=== PATIENT | female | born 1970 | race Caucasian/White ===

== ENCOUNTER 2022-01-15 16:18 | Inpatient (IN) | payer OTHER ==
[2022-01-15 16:44] VITALS: BMI 52.3
[2022-01-15] MEDS ORDERED: Acetaminophen 325 MG TAB PO PRN (16:44)
[2022-01-15] MEDS ORDERED: Ondansetron ODT 4 MG TAB PO PRN (16:44)
[2022-01-15] MEDS ORDERED: Ondansetron PF 4 MG/2 ML Vial IVP PRN (16:44)
[2022-01-15] MEDS: HYDROcodone/Acetaminophen 5/325 mg Tablet PO PRN ×2 (17:14→21:33)
[2022-01-15] MEDS: Nicotine 14 MG PATCH TD SCH (17:14)
[2022-01-15] MEDS: Sodium Chloride 0.9% 1,000 ML IV SCH (17:15)
[2022-01-15] MEDS: VANCOMYCIN 1.75 GM/350 ML BAG 1.75 GM in Premix Bag 1 BAG IVPB SCH (17:25)
[2022-01-15] MEDS ORDERED: Cefepime 1 GM in Sodium Chloride 0.9% 100 ML IVPB SCH (21:00)
[2022-01-15] MEDS: Propranolol 10 MG TAB PO SCH (21:34)
[2022-01-16] MEDS: HYDROcodone/Acetaminophen 5/325 mg Tablet PO PRN ×4 (04:41→19:34)
[2022-01-16 05:49] LABS: #Basophils 0.1 10x3/uL (0.0-0.2); #Eosinphils 0.1 10x3/uL (0.0-0.5); #Monocytes 0.5 10x3/uL (0.0-1.1); #Neutrophils 3.4 10x3/uL (1.5-8.4); %Basophils 0.9 % (0.0-2.0); %Eosinophils 1.4 % (0.0-6.0); %Lymphocytes 27.9 % (18.0-47.0); %Monocytes 8.9 % (0.0-10.0); %Neutrophils 60.5 % (40.0-75.0); Hemoglobin 11.2 g/dL (12.0-15.5); Mean Corpuscular HGB CONC 33.5 g/dL (32.0-36.0); Mean Corpuscular Hemoglobin 28.6 pg (27.0-33.0); Mean Corpuscular Volume 85.4 fl (81.6-98.3); Mean Platelet Volume 9.5 fl (7.4-10.4); Platelet Count 215 10x3/uL (150-450); RBC Distribution Width 13.3 % (11.5-14.5); Red Blood Cell (RBC) Count 3.91 10x6/uL (3.90-5.03); White Blood Cell (WBC) Count 5.6 10x3/uL (3.5-10.5)
[2022-01-16 06:05] LABS: Anion Gap 11 mmol/L (10-20); BUN (Urea Nitrogen) 12 mg/dL (7.0-18.7); Calc. Creatinine Clearance 211 mL/min (70-130); Calcium 8.7 mg/dL (7.8-10.44); Carbon Dioxide 27 mmol/L (22-29); Chloride 106 mmol/L (98-107); Estimated GFR 95; Glucose 115 mg/dL (70-105); Sodium 140 mmol/L (136-145)
[2022-01-16] MEDS: VANCOMYCIN 1.75 GM/350 ML BAG 1.75 GM in Premix Bag 1 BAG IVPB SCH ×2 (06:44→19:33)
[2022-01-16] MEDS: Sodium Chloride 0.9% 1,000 ML IV SCH (06:52)
[2022-01-16] MEDS: Propranolol 10 MG TAB PO SCH ×2 (09:07→23:22)
[2022-01-16] MEDS: Venlafaxine HCl XR 75 MG CAP PO SCH (09:07)
[2022-01-16] MEDS: Enoxaparin Sodium 40 MG/0.4 ML SYRINGE SC SCH (09:08)
[2022-01-16] MEDS: metroNIDAZOLE 500 MG TAB PO SCH ×2 (15:22→23:22)
[2022-01-16 18:48] LABS: Vancomycin, Trough 14.7 ug/mL
[2022-01-16] MEDS: Nicotine 14 MG PATCH TD SCH (19:33)
[2022-01-17] MEDS: HYDROcodone/Acetaminophen 5/325 mg Tablet PO PRN ×5 (03:23→23:50)
[2022-01-17] MEDS: VANCOMYCIN 1.75 GM/350 ML BAG 1.75 GM in Premix Bag 1 BAG IVPB SCH ×2 (06:01→18:32)
[2022-01-17] MEDS: metroNIDAZOLE 500 MG TAB PO SCH ×3 (06:01→21:07)
[2022-01-17] MEDS: Propranolol 10 MG TAB PO SCH ×2 (08:30→21:07)
[2022-01-17] MEDS: Enoxaparin Sodium 40 MG/0.4 ML SYRINGE SC SCH (08:30)
[2022-01-17] MEDS: Venlafaxine HCl XR 75 MG CAP PO SCH (08:30)
[2022-01-17 17:09] LABS: Vancomycin, Trough 19.9 ug/mL
[2022-01-17] MEDS: Nicotine 14 MG PATCH TD SCH (18:31)
[2022-01-18] MEDS: HYDROcodone/Acetaminophen 5/325 mg Tablet PO PRN ×2 (05:19→09:47)
[2022-01-18] MEDS: metroNIDAZOLE 500 MG TAB PO SCH (05:19)
[2022-01-18] MEDS: Enoxaparin Sodium 40 MG/0.4 ML SYRINGE SC SCH (08:56)
[2022-01-18] MEDS: Venlafaxine HCl XR 75 MG CAP PO SCH (08:56)
[2022-01-18] MEDS: Propranolol 10 MG TAB PO SCH (08:56)
[2022-01-18] MEDS ORDERED: Vancomycin 1.5 GRAM/300 ML BAG 1.5 GM in Premix Bag 1 BAG IVPB SCH (09:00)
[2022-01-18 11:48] VITALS: BP 144/75; TEMP 97.6
== END 2022-01-18 12:58 | disposition home or self-care (01) | DRG 603 ==
LOC: CSHTELE 16:18
PROVIDERS: ADMIT Internal Medicine; ATTEND Internal Medicine
DX: L03.115 Cellulitis of right lower limb (principal); Z68.43 Body mass index [BMI] 50.0-59.9, adult; J44.9 Chronic obstructive pulmonary disease, unspecified; F17.210 Nicotine dependence, cigarettes, uncomplicated; M19.90 Unspecified osteoarthritis, unspecified site; E66.01 Morbid (severe) obesity due to excess calories; Z20.822 Contact with and (suspected) exposure to COVID-19; S81.801A Unspecified open wound, right lower leg, initial encounter; F31.9 Bipolar disorder, unspecified; Z98.890 Other specified postprocedural states; Z91.011 Allergy to milk products; Z79.899 Other long term (current) drug therapy; Z85.43 Personal history of malignant neoplasm of ovary; Z90.49 Acquired absence of other specified parts of digestive tract; Z90.710 Acquired absence of both cervix and uterus; Z71.6 Tobacco abuse counseling
CPT/HCPCS: 36415; 36416; 80048; 80202; 85025; 94760; 97139; J0692; J1650; J3370; J3490; J7050; U0003; U0005